=== PATIENT | male | born 1975 | race Caucasian/White ===

== ENCOUNTER → 2020-12-14 08:20 | Outpatient (CLI) | payer BC, SELFPAY ==
--- NOTE | ~2020-12-14 | CT_ITS ---
EXAMINATION:CT diagnostic chest w con DATE: 12/14/2020 08:42 INDICATION: Cough and congestion. TECHNIQUE: Computed tomography (CT) of the chest was performed with 75 mL Omnipaque 350 intravenous c ontrast. Automated exposure control and iterative reconstruction technique were employed. The dose-le ngth product (DLP) was 724.58 mGy-cm. COMPARISON: Chest CT 12/18/2009 FINDINGS: There is a 10 mm nodule with attenuation of 62 HU in right upper lobe. A pulmonary artery a nd a pulmonary vein touch the nodule. There is mild atelectasis bilaterally. No pleural effusion. The heart size is normal. No pericardial effusion. Partially visualized is a 3.8 cm cyst in right kidney . There is mild thoracic spondylosis. IMPRESSION: 1. 10 mm right upper lobe pulmonary nodule, new from 12/18/2009. This finding may be an arteriovenous m alformation, granulomatous disease, or primary bronchogenic carcinoma. Chest CTA (pulmonary artery pr otocol) is recommended. Reviewed, dictated and finalized at location A. IMPRESSION: 1. 10 mm right upper lobe pulmonary nodule, new from 12/18/2009. This finding may be an arteriovenous malformation, granulomatous disease, or primary bronchogen ic carcinoma. Chest CTA (pulmonary artery protocol) is recommended.
== END ==
PROVIDERS: PCP Physician Assistant; Visit Provider Physician Assistant
DX: R05 Cough (principal); R91.1 Solitary pulmonary nodule
CPT/HCPCS: 71260; Q9967

== ENCOUNTER → 2020-12-15 10:45 | Outpatient (CLI) | payer BC, SELFPAY ==
--- NOTE | ~2020-12-15 | CT_ITS ---
EXAMINATION: CTA chest DATE: 12/15/2020 11:07 INDICATION: Solitary pulmonary nodule. TECHNIQUE: Computed tomography angiography (CTA) of the chest was performed with 100 mL Omnipaque-350 intravenous contrast timed to evaluate the pulmonary arteries. Coronal maximum intensity projection 3D-reconstructions were created by the technologist. Automated exposure control and iterative reconst ruction technique were employed. The dose-length product was 775.69 mGy-cm. COMPARISON: Chest CT 12/14/2020 FINDINGS: There is a 9 mm nodule in right lung upper lobe measuring soft tissue attenuation. No arter iovenous malformation. No pleural effusion. The heart size is normal. No pericardial effusion. There is no pulmonary embolus. Partially visualized is a 2.5 cm cyst in right kidney. There is mild thoraci c spondylosis. IMPRESSION: 1. 9 mm nodule in right lung upper lobe, which may be granulomatous disease or primary bronchogenic c arcinoma. Consider PET/CT or 3 month low-dose noncontrast chest CT. Reviewed, dictated and finalized at location A. IMPRESSION: 1. 9 mm nodule in right lung upper lobe, which may be granulomatous disease or primary bronchogenic carcinoma. Consider PET/CT or 3 month low-dose noncontrast chest CT.
== END ==
PROVIDERS: PCP Physician Assistant; Visit Provider Physician Assistant
DX: R91.1 Solitary pulmonary nodule (principal)
CPT/HCPCS: 71275; Q9967

== ENCOUNTER → 2021-06-13 01:56 | Outpatient (CLI) | payer BC, SELFPAY ==
[2021-06-14 13:33] LABS: SARS-CoV-2 RNA PCR Positive
== END ==
PROVIDERS: PCP Physician Assistant; Visit Provider Physician Assistant
DX: U07.1 COVID-19 (principal)
CPT/HCPCS: C9803; U0003; U0005

== ENCOUNTER 2023-12-10 01:36 | Day surgery (SDC) | payer BC, SELFPAY ==
[2023-12-10 10:28] VITALS: BP 129/84; PULSE 68; RESP 18; TEMP 36.1; O2SAT 98
[2023-12-10] MEDS: LACTATED RINGERS 1,000 ML 150 ML IV CONT (10:41)
--- NOTE | 2023-12-10 10:53 | P.PNAN_ITS ---
Anes - Initial Pre Proc Eval Procedure: Operation Date: 12/10/23 11:30 Proposed Procedures p Screening Colonoscopy - Marc Sosa MD Date/Time: 12/10/23 10:53 Surgeon: Marc Sosa MD Pre Op Diagnosis: Neoplasm screening Patient Data Age: 48 Gender: M Height: Weight: 123 kg Last Vital Signs Temp 36.1 C L 12/10/23 10:28 Pulse 68 12/10/23 10:28 Resp 18 12/10/23 10:28 BP 129/84 12/10/23 10:28 Pulse Ox 98 12/10/23 10:28 O2 Del Method Room Air 12/10/23 10:28 Allergies Allergy/AdvReac Type Severity Reaction Status Date / Time No Known Allergies Allergy Mild Verified 12/10/23 10:27 Home Medications Medication Instructions Recorded Confirmed Type No Home Medications 11/26/23 11/26/23 History Patient hx anesthesia problems: none Family hx anesthesia problems: none Results Review: All pre-operative results and documents have been reviewed as part of the pre- operative evaluation. PMFSH Past Medical History Medical History (Updated 12/10/23 @ 10:53 by Marvin Mendoza MD) Obesity Social History Social History Alcohol intake: current Drinks per week: 2 Living arrangements: with family Spiritual care concerns: No Anes - Eval Final PreProcedure Day of Procedure 12/10/23 10:53 Patient weight: obese Heart: regular rate and rhythm Lungs: clear to auscultation Airway: Mallampati scale class II Neurological: alert and oriented Last oral intake: >/= 8 hours ASA classification: II Emergent: no Anesthetic plan: proceed Anesthesia type and monitoring: general GIVS and standard monitoring Results Review: All pre-operative results and documents have been reviewed as part of the pre- operative evaluation. Informed Consent: The patient's anesthetic plan and its attendant risks and benefits were discussed with the patient/family/POA. Questions were solicited and answers provided to the satisfaction of the patient/family/POA.
--- NOTE | 2023-12-10 11:12 | P.HP_ITS ---
History of Present Illness History of Present Illness Consent: Risks, benefits, and alternatives have been discussed and questions answered. Patient agrees to proceed with procedure. Chief complaint: Neoplasm screening Narrative: Albert García is a 48 year old male here for first screening colonoscopy Review of Systems Constitutional: Constitutional: Denies headache(s) and Denies weakness Eyes: Eyes: Denies blurry vision ENT: Reports Normal hearing present, Denies headache(s) and Denies neck pain Cardiovascular: Cardiovascular: Denies chest pain and Denies dyspnea Respiratory: Respiratory: Denies dyspnea Gastrointestinal: Gastrointestinal: Reports no additional gastrointestinal complaints Genitourinary: Genitourinary: Denies dysuria Musculoskeletal: Musculoskeletal: Denies neck pain Integumentary/Breasts: Skin/Breast: Denies dry skin Neurologic: Reports Normal hearing present, Denies headache(s) and Denies weakness Psychiatric: Psychiatric: Denies anxiety Endocrine: Endocrine: Denies change in body appearance Hematologic/Lymphatic: Hematologic/Lymphatic: Denies easy bleeding Allergic/Immunologic: Allergic/Immunologic: Denies urticaria [facility] Past Medical History Medical History (Updated 12/10/23 @ 11:14 by Marc Sosa MD) Colon cancer screening Obesity Social History Social History Alcohol intake: current Drinks per week: 2 Living arrangements: with family Spiritual care concerns: No Meds Home Medications and Allergies Home Medications Medication Instructions Recorded Confirmed Type No Home Medications 11/26/23 11/26/23 History Allergies Allergy/AdvReac Type Severity Reaction Status Date / Time No Known Allergies Allergy Mild Verified 12/10/23 10:27 Vital Signs Vital Signs - 24 hr 12/10/23 10:28 Temperature 97.0 F L Pulse Rate 68 Respiratory Rate 18 Blood Pressure 129/84 Pulse Oximetry 98 Oxygen Delivery Room Air Exam Const: General: comfortable and no acute distress HENMT: Face/Nose/Sinus: Normal nares present Eyes: General: appearance normal, both eyes and all related structures Neck: Neck: no JVD Resp: Auscultation: clear to auscultation bilaterally Cardio: Rate: regular rate Rhythm: regular rhythm GI: Inspection: non-distended GI Palp: Yes Soft to palpation Skin: General skin exam: normal color Neuro: General: gait normal Speech: normal speech Extrem: General: normal to inspection Psych: Mental Status: mental status grossly normal Assessment and Plan Assessment and plan (1) Colon cancer screening: Code(s): Z12.11 - Encounter for screening for malignant neoplasm of colon Status: Acute Assessment and Plan: colonoscopy
[2023-12-10 11:31] VITALS: BP 109/69; PULSE 57; RESP 19; O2SAT 96
[2023-12-10 11:41] VITALS: BP 109/69; PULSE 60; RESP 16; O2SAT 96
[2023-12-10 11:51] VITALS: BP 111/72; PULSE 60; RESP 16; O2SAT 96
== END 2023-12-10 11:51 | disposition home or self-care (01) ==
PROVIDERS: PCP Physician Assistant; Visit Provider Internal Medicine Gastroenterology
PROC: 0DJD8ZZ Inspection of Lower Intestinal Tract, Via Natural or Artificial Opening Endoscopic (ICD-10-PCS; CPT 45378; principal; 2023-12-10 11:30)
DX: Z12.11 Encounter for screening for malignant neoplasm of colon (principal)
CPT/HCPCS: 45378; J2001; J2704; J7120